=== PATIENT | male | born 1940 | race Caucasian/White ===

== ENCOUNTER → 2017-04-18 | Outpatient (CLI) | payer OTHER ==
--- NOTE | 2017-04-18 16:06 | MRI ---
MRI BRAIN WITHOUT CONTRAST CLINICAL HISTORY: 76-year-old male with tremors. COMPARISON: None. TECHNIQUE: Multiplanar, multisequence MR images of the brain were obtained without contrast. FINDINGS: There is no evidence of diffusion restriction. The craniocervical junction is normal. Pitu itary and optic nerve complex are normal. Mild multifocal punctate T2 FLAIR signal hyperintensities are present within the periventricular and supraventricular white matter that are nonspecific in anisa earance but most likely to represent microvascular white matter ischemic changes. Mild thinning of t he pars compacta. Normal signal characteristics and morphology are demonstrated within the cerebral cortex, corpus callosum, deep dickinson nuclei, brainstem and cerebellum. The major vascular flow voids, to include the dural venous sinuses, are intact. Age advanced cortical volume loss is present, with commensurate sulcal and ventricular prominence. The basilar cisterns are normal. The orbits and globes are within normal limits. The paranasal sinuses, tympanic cavities and mastoid s are clear. IMPRESSION: 1. Mild thinning of the pars compacta, which can be seen with Parkinson disease. 2. Chronic microvascular white matter ischemic disease with associated volume loss. 3. No acute ischemic or hemorrhagic insult. Reported By:
== END ==
LOC: RAD 14:30
PROVIDERS: ATTEND Psychiatry & Neurology Neurology
DX: G20 Parkinson's disease (principal)
CPT/HCPCS: 70551